=== PATIENT | male | born 1955 | race Asian ===

== ENCOUNTER 2019-01-31 18:24 | Emergency (ER) | payer OTHER ==
[~2019-01-31] VITALS: Ht 162.6 cm; Wt 81.8 kg
[~2019-01-31 18:24] MED LIST: TRAM-459 PO
[2019-01-31 18:29] VITALS: BP 175/92
[2019-01-31] MEDS ORDERED: LISI-660 PO (18:39)
[2019-01-31] MEDS ORDERED: SUMA25TA9 PO (18:41)
[2019-01-31] MEDS ORDERED: IBUP-2271 PO (18:41)
[2019-01-31] MEDS ORDERED: FURO40I IM (18:41)
[2019-01-31] MEDS ORDERED: ATOR10TA84 PO (18:41)
[2019-01-31] MEDS ORDERED: ASPI81 PO (18:41)
[2019-01-31 18:51] LABS: GLUCOSE,POINT OF CARE 143 MG/DL (70-110)
== END 2019-01-31 20:00 | disposition left against medical advice (07) ==
LOC: EMS 18:24
DX: S31.159A Open bite of abdominal wall, unspecified quadrant without penetration into peritoneal cavity, initial encounter (principal); W54.0XXA Bitten by dog, initial encounter; Y93.89 Activity, other specified; Y92.89 Other specified places as the place of occurrence of the external cause; Y99.8 Other external cause status